=== PATIENT | male | born 1970 | race Caucasian/White ===

== ENCOUNTER 2017-03-30 05:15 | Day surgery (SDC) | payer BC, OTHER ==
[~2017-03-30] VITALS: Ht 195.6 cm; Wt 110.2 kg
--- NOTE | ~2017-03-30 | S ---
[facility] [place] [address] SURGICAL PATH RPT PROCEDURE Name: MACARENA BRONW Room #: DEP [facility] M.R.#: [id number] Admission: 03/30/17 Date of : 66 Discharge: 03/30/17 Report #: [id number] Path Case #: [id number] PATHOLOGY REPORT COLLECTION DATE: 03/30/2017 RECEIVED DATE: 03/30/2017 SUBMITTING PHYS: Dr. Nabor Mims, OTHER PHYS: MARIBEL Smith SPECIMEN(S) RECEIVED: A.Lipoma of back * * * * * * * * * * * * FINAL DIAGNOSIS: "Lipoma of back", excision: - Mature adipose tissue consistent with lipoma with focal intramuscular component. COMMENT: The case is co-reviewed with Dr. Kaitlyn Parsons. Clinical correlation is required. (CLW:sally; 04/02/2017) PATHOLOGIST: Ashley Morillo M.D. REPORT ELECTRONICALLY SIGNED BY: Ashley Morillo M.D. DATE/TIME: 04/02/2017 22:16 * * * * * * * * * * * * GROSS PATHOLOGY: Received in formalin labeled "Macarena Brown, lipoma of back," is a segment of lobulated fibroadipose tissue measuring 4.9 x 4.0 x 1.7 cm in maximum dimensions. Sectioning reveals homogeneous, bright yellow cut surfaces. Pediatric Speech Language Pathologist tissue is submitted in cassette A1. (TSD; 03/30/2017) CLINICAL HISTORY: Lipoma back INITIAL CPT CODE(S): A; 34613 Professional services performed by [facility] at [facility] [address], [place] [address] Technical services performed by [facility] at [address] [place] [address] [place] [address] SURGICAL PATH RPT PROCEDURE Name: MACARENA BROWN Room #: DEP [facility] [place]#: [id number] Admission: 03/30/17 Date of : 66 Discharge: 03/30/17 Report #: [id number] Path Case #: [id number] [place] [address]. [facility] [address] [place] [address] PHONE: [phone] DIRECTOR: Obie Alexis M.D. * * * END OF REPORT * * *
[~2017-03-30 05:15] MED LIST: LEVOTHYROXIN0.075 MG PO; VALACYCLOVIR1000 MG PO; VITAMIN B-12500 MCG PO; VITAMIN D1000 UNI1 PO
[2017-03-30 12:30] VITALS: BP 139/84
== END 2017-03-30 14:45 | disposition home or self-care (01) ==
LOC: OR 05:15 → TBA 05:15 → OR 08:59
DX: D17.1 Benign lipomatous neoplasm of skin and subcutaneous tissue of trunk (principal); E03.9 Hypothyroidism, unspecified; Z98.890 Other specified postprocedural states
CPT/HCPCS: 50010; 50101; 50386; 50403; 56524; 56526; 70005